=== PATIENT | female | born 1970 | race Caucasian/White ===

== ENCOUNTER 2017-07-07 07:54 | Emergency (ER) | payer BC, OTHER ==
[2017-07-07 08:06] VITALS: BP 126/82
--- NOTE | 2017-07-07 08:20 | UC ---
Respiratory Complaint HPI - HPI Summary HPI Summary: 46 YEAR OLD female with cough and ear congestion for 2 days . no fever has had sinus pressure, SCOTT and now with tooth pain. the ears feel plugged. sick kids at [facility] exposure . - History of Current Complaint Chief Complaint: UCGeneralIllness Stated Complaint: EARS CONGESTION COUGH Time Seen by Provider: 07/07/17 08:18 Hx Obtained From: Patient Hx Last Menstrual Period: ABLASION ?: No Onset/Duration: Gradual Onset Timing: Constant Severity Initially: Mild Severity Currently: Moderate Character: Cough: Nonproductive Aggravating Factors: Nothing Alleviating Factors: Nothing Associated Signs And Symptoms: Positive: Nasal Congestion - Allergies/Home Medications Allergies/Adverse Reactions: Allergies Allergy/AdvReac Type Severity Reaction Status Date / Time No Known Allergies Allergy Verified 07/07/17 08:05 Home Medications: Home Medications Melatonin 5 07/07/17 [History] Mirtazapine TAB* [Remeron TAB*] 45 mg 07/07/17 [History] Sertraline* [Zoloft*] 100 mg PO BEDTIME 07/07/17 [History Confirmed 07/07/17] hydrOXYzine HCL TAB* [Atarax 25 MG TAB*] 07/07/17 [History] PMH/Surg Hx/FS Hx/Imm Hx Previously Healthy: Yes Psychological History: Anxiety - Surgical History Surgical History: Yes Surgery Procedure, Year, and Place: CERVICAL ABLASION - Family History Known Family History: Positive: None - Social History Occupation: Employed Full-time Lives: With Family Alcohol Use: None Substance Use Type: None Smoking Status (MU): Never Smoked Tobacco - Immunization History Most Recent Influenza Vaccination: CURRENT 2016/2017 Review of Systems ENT: Ear Ache, Nasal Discharge, Sinus Congestion, Sinus Pain/Tenderness Respiratory: Cough All Other Systems Reviewed And Are Negative: Yes Physical Exam Triage Information Reviewed: Yes Appearance: Well-Appearing, No Pain Distress, Well-Nourished Vital Signs: Initial Vital Signs Temp 97.6 F 07/07/17 08:01 Pulse 98 07/07/17 08:01 Resp 18 07/07/17 08:01 BP 126/82 07/07/17 08:01 Pulse Ox 98 07/07/17 08:01 Vital Signs Reviewed: Yes Eye Exam: Normal ENT Exam: Normal ENT: Positive: Nasal congestion, Nasal drainage, TM dull, Sinus tenderness Dental Exam: Normal Neck exam: Normal Neck: Positive: 1 Respiratory Exam: Normal Cardiovascular Exam: Normal Musculoskeletal Exam: Normal Neurological Exam: Normal Psychological Exam: Normal Skin Exam: Normal UC Diagnostic Evaluation - Laboratory O2 Sat by Pulse Oximetry: 98 Respiratory Course/Dx - Course Course Of Treatment: TREAT supportively at this time and if sx persist or worsen over 3 days then can start augmetnin - Differential Dx/Diagnosis Differential Diagnosis/HQI/PQRI: Bronchitis, Lower Resp Infection, Sinusitis Provider Diagnoses: sinusitis Discharge - Discharge Plan Condition: Good Disposition: HOME Prescriptions: Amoxicillin/Clavulanate TAB* [Augmentin TAB 875*] 875 mg PO BID #20 tab Patient Education Materials: Sinusitis (ED) Referrals: No Primary Care Phys,NOPCP [Primary Care Provider] - 4 Days (if needed ) Additional Instructions: WE DISCUSSED YOU APPEAR TO HAVE VIRAL INFECTION. START FLONASE AND DAYQUIL IN THE AM AND NETTI POT AND BENADRYL IN THE PM AND IF YOUR SYMPTOMS WORSEN OVER THE NEXT 3 DAYS THEN YOU MAT AT THAT TIME START THEN ANTIBIOTIC
== END 2017-07-07 08:35 | disposition home or self-care (01) ==
LOC: UCCORT 07:54
DX: J32.9 Chronic sinusitis, unspecified (principal); F41.9 Anxiety disorder, unspecified
CPT/HCPCS: 99202; G0463

== ENCOUNTER 2018-09-06 13:50 | Emergency (ER) | payer BC ==
[2018-09-06 15:06] VITALS: BP 137/75
[2018-09-06] MEDS ORDERED: Ketorolac INJ* 30 MG/ML 1 ML VIAL IM ONE (15:12)
[2018-09-06] MEDS ORDERED: Cyclobenzaprine TAB* 10 MG PO ONE (15:13)
--- NOTE | 2018-09-06 15:21 | UC ---
Back Pain HPI - HPI Summary HPI Summary: on tuesday, pt states she got a generalized ache in her back. by tuesday, it had improved. today, the pain/spasm is much worse again, she feels it in her R low back. she took 400mg of motrin 3.5 hours ago with no relief. no hx injury or fever. no urinary s/s's. - History of Current Complaint Chief Complaint: UCBackPain Stated Complaint: BACK PAIN Time Seen by Provider: 09/06/18 14:58 Hx Obtained From: Patient Hx Last Menstrual Period: DOES NOT HAVE PERIODS, ENDOMETRIAL ABLATION Pain Intensity: 9 Aggravating Factor(s): Movement Alleviating Factor(s): Rest Associated Signs And Symptoms: Positive: Other - no saddle anesthesia. Negative : Fever, Weakness, Numbness, Tingling, Abdominal Pain, Flank Pain, Bladder Incontinence, Bowel Incontinence - Risk Factors AAA Risk Factors: Negative TAD Risk Factors: Negative Cauda Equina Risk Factors: Negative - Allergies/Home Medications Allergies/Adverse Reactions: Allergies Allergy/AdvReac Type Severity Reaction Status Date / Time No Known Allergies Allergy Verified 09/06/18 14:53 Home Medications: Home Medications Ibuprofen TAB* [Advil TAB*] 200 mg PO Q6H PRN 09/06/18 [History Confirmed ] Venlafaxine EXT RELEASE CAP* [Effexor Xr CAP*] 75 mg PO DAILY 09/06/18 [History Confirmed 09/06/18] Zolpidem Tartrate [Zolpidem Tartrate ER] 12.5 mg PO BEDTIME 09/06/18 [History Confirmed 09/06/18] PMH/Surg Hx/FS Hx/Imm Hx - Additional Past Medical History Additional PMH: sleep disturbance Psychological History: Anxiety - Surgical History Surgical History: Yes Surgery Procedure, Year, and Place: ENDOMETRIAL ABLATION - Family History Known Family History: Positive: None - Social History Alcohol Use: None Substance Use Type: None Smoking Status (MU): Never Smoked Tobacco Household Exposure Type: Cigarettes - Immunization History Most Recent Influenza Vaccination: CURRENT 2016/2017 Review of Systems All Other Systems Reviewed And Are Negative: Yes Constitutional: Positive: Negative Skin: Positive: Negative Eyes: Positive: Negative ENT: Positive: Negative Respiratory: Positive: Negative Cardiovascular: Positive: Negative Gastrointestinal: Positive: Negative Genitourinary: Positive: Negative Motor: Positive: Negative Neurovascular: Positive: Negative Neurological: Positive: Negative Psychological: Positive: Negative Physical Exam Triage Information Reviewed: Yes Appearance: Well-Appearing Vital Signs: Initial Vital Signs Temp 98.4 F 09/06/18 14:58 Pulse 59 09/06/18 14:58 Resp 18 09/06/18 14:58 BP 137/75 09/06/18 14:58 Pulse Ox 98 09/06/18 14:58 Vital Signs Reviewed: Yes Eyes: Positive: Conjunctiva Clear ENT: Positive: Normal ENT inspection Neck: Positive: Supple, Nontender, No Lymphadenopathy, Other: - c-spine non tender Respiratory: Positive: Lungs clear, Normal breath sounds, No respiratory distress Cardiovascular: Positive: RRR, No Murmur, Pulses Normal Abdomen Description: Positive: Nontender, No Organomegaly, Soft. Negative: Distended, Guarding, Pulsatile Mass Bowel Sounds: Positive: Present Musculoskeletal: Positive: Other: - Back: no rash. spasm and tender over R paraspinal mm's in lumbar region. spine nontender. limited rom low back due to spasm. 5/5 strength, 2+ reflexes, sensation intactx4. steady gait. no saddle anesthesia. Neurological: Positive: Alert Psychological: Positive: Age Appropriate Behavior Skin Exam: Normal Diagnostics - Laboratory Diagnostic Studies Completed/Ordered: U/A= 1+BLOOD Re-Evaluation - Re-Evaluation First Eval Re-Evaluation Time: 15:59 Change: Improved - PT STATES IT HAS LET UP AND MOVING IS EASIER. Back Pain Course/Dx - Differential Dx/Diagnosis Differential Diagnosis/HQI/PQRI: Other - NON TOXIC. NO CONCERN FOR INFECTION. NO ACUTE ABDOMEN. NO CONCERN FOR CAUDA EQUINA. NOT TYPICAL FOR KIDNEY STONE. EXAM C/W MM SPASM. Provider Diagnosis: Back pain Discharge - Sign-Out/Discharge Documenting (check all that apply): Patient Departure All imaging exams completed and their final reports reviewed: No Studies - Discharge Plan Condition: Stable Disposition: HOME Prescriptions: Cyclobenzaprine TAB* [Flexeril 10 MG TAB*] 10 mg PO TID PRN #10 tab PRN Reason: Pain - Back Naproxen [Naprosyn 500 mg tab] 500 mg PO BID 5 Days #10 tablet Patient Education Materials: Back Pain (ED) Referrals: Joelle Chappell MD [Primary Care Provider] - 3 Days Additional Instructions: FOLLOW UP SOONER FOR ANY WORSENING - Billing Disposition and Condition Condition: STABLE Disposition: Home - Attestation Statements Provider Attestation: Per institutional requirements, I have reviewed the chart, however, I was not consulted specifically or made aware of this patient by the midlevel provider. I did not personally evaluate, interact with , or disposition this patient.
== END 2018-09-06 16:46 | disposition home or self-care (01) ==
LOC: UCCORT 13:50
DX: M54.5 Low back pain (principal); G47.9 Sleep disorder, unspecified; F41.9 Anxiety disorder, unspecified; Z79.899 Other long term (current) drug therapy
CPT/HCPCS: 81003; 96372; 99212; A9270-GY; G0463; J1885